=== PATIENT | female | born 1980 | race Caucasian/White ===

== ENCOUNTER 2017-11-22 20:20 | Emergency (ER) | payer OTHER, SELFPAY ==
[2017-11-22 20:25] VITALS: BP 133/73; PULSE 94; RESP 18; TEMP 36.3; O2SAT 100; BMI 66.7
[2017-11-22 23:15] VITALS: BP 124/83; PULSE 74; RESP 16; O2SAT 100
[2017-11-22] MEDS: KETOROLAC 60 MG/2 ML VIAL IM (23:26)
[2017-11-22] MEDS: diazePAM 5 MG TABLET PO (23:26)
[2017-11-22] MEDS: predniSONE 20 MG TABLET 40 MG PO (23:27)
--- NOTE | 2017-11-23 02:51 | ED_ITS ---
HPI - Neck Pain/Injury General Chief Complaint: Neck Pain/Injury Stated Complaint: PAIN NECK INJURY PAIN DOWN LEFT ARM Source: patient and family Mode of arrival: ambulatory Limitations: no limitations History of Present Illness HPI Narrative: Patient presents to the emergency department with a few days of slight worsening left-sided neck pain in the absence of any significant injury. She states she might have slept wrong or tweaked it while doing some work at her home a few days ago. The pain radiates into her left arm and she has some tingling but denies any weakness. She has seen her chiropractor and had an adjustment without much in the way of relief. She denies any specific injury and has no midline bony pain. She denies fever, chills nor headache. Related Data Previous Rx's Medication Instructions Recorded diazepam [Valium] 5 mg PO TID PRN #14 tab 11/22/17 ibuprofen 600 mg PO TID-QID PRN #20 tab 11/22/17 oxycodone 5 mg PO Q4-6H PRN #14 tab 11/22/17 prednisone 20 mg PO DAILY #5 tab 11/22/17 Allergies Allergy/AdvReac Type Severity Reaction Status Date / Time acetaminophen [From Vicodin] Allergy Intermediate Hives Verified 11/22/17 20:29 hydrocodone [From Vicodin] Allergy Intermediate Hives Verified 11/22/17 20:29 Review of Systems Review of Systems All systems reviewed & are unremarkable except as noted in HPI and below Constitutional Denies chills, Denies fever(s), Denies lethargy and Denies weakness Eyes Denies change in vision, Denies eye discharge, Denies irritation and Denies loss of vision ENT Ears, Nose, Mouth, and Throat: Denies change in voice, Reports neck pain and Denies sore throat Cardiovascular Denies chest pain, Denies irregular heart rhythm, Denies lightheadedness, Denies palpitations, Denies dyspnea, Denies dyspnea on exertion and Denies orthopnea Respiratory Denies cough, Denies dyspnea, Denies dyspnea on exertion and Denies wheezing Gastrointestinal Gastrointestinal: Denies abdominal pain, Denies change in bowel habits, Denies diarrhea, Denies nausea and Denies vomiting Genitourinary Denies hematuria, Denies flank pain, Denies urinary incontinence and Denies urinary urgency Musculoskeletal Reports limited range of motion, Reports neck pain, Reports radiating pain into limb and Reports tingling Integumentary/Breasts Denies pruritus, Denies erythema, Denies rash and Denies wounds Neurologic Denies confusion, Denies loss of vision, Reports tingling and Denies weakness Psychiatric Denies anxiety, Denies confusion, Denies depression, Denies homicidal ideation and Denies suicidal ideation Endocrine Denies palpitations Hematologic/Lymphatic Denies easy bruising Allergic/Immunologic Denies wheezing PFSH Social History Smoking Status: Never smoker Exam Initial Vital Signs Initial Vital Signs: Vital Signs Temperature 97.4 F L 11/22/17 20:25 Pulse Rate 94 H 11/22/17 20:25 Respiratory Rate 18 11/22/17 20:25 Blood Pressure 133/73 H 11/22/17 20:25 Pulse Oximetry 100 11/22/17 20:25 Const General: cooperative and well developed Nutritional Appearance: well nourished Orientation: alert, awake, oriented x3 and not confused HENMT Head: normocephalic and atraumatic Ears: external ears normal and TM's normal bilaterally Nose: external nose normal and No nasal discharge Face and sinus: sinuses nontender, face symmetric, no sinus tenderness and No dry mucous membranes Mouth: oral mucosae normal and moist mucous membranes Teeth and gingiva: dentition normal Throat: tonsils normal and uvula midline Eyes General: appearance normal, both eyes and all related structures Eyelids: eyelids normal Conjunctivae: conjunctivae normal Sclera: sclerae normal Pupils: PERRL EOM: EOM intact bilaterally Neck Neck: normal visual inspection, No full ROM, supple, No anterior neck swelling, No midline deformity, No positive Brudzinski's sign and No positive Kernig's sign Other: Paraspinal tenderness on left side musculature No change in symptoms with axial loading of cervical spine Chest Chest: normal inspection of the chest Resp Effort & Inspection: normal respiratory effort, able to speak in complete sentences, no respiratory distress and no use of accessory muscles Auscultation: clear to auscultation bilaterally, no rales, no rhonchi and no wheezes Cardio Rate: regular rate Rhythm: regular rhythm Heart Sounds: no click, no gallops, no murmurs and no rubs Pulses: normal peripheral pulses GI Inspection: non-distended Palpation: soft, no hepatosplenomegaly, No guarding, No pulsatile mass and No tender Auscultation: normal bowel sounds Back/Spine/Pelvis Back: No CVA tenderness Cervical Spine: cervical ROM normal and No pain with cervical ROM Thoracic/Lumbar Spine: thoracic and lumbar spine normal to inspection Skin General: no rashes or lesions noted, No jaundice and No petechiae Neuro General: alert, awake, oriented x3, no meningeal signs and no focal motor deficits Cranial Nerves: CN's II-XI intact bilaterally Cognition: normal cognition Speech: speech normal Gait: normal gait Motor: muscle tone normal throughout, strength 5/5 throughout and No fasciculations Sensory Exam: no sensory deficits noted Extrem General: full ROM, no clubbing, cyanosis or edema, no pedal edema and no calf tenderness Psych Appearance: well kempt Mental Status: mental status grossly normal Attitude: cooperative Thought Content: normal and suicidality Judgment: judgment good Procedures Orthopedic Splinting/Casting Injury #1: Additional Comments: Patient placed in a soft cervical collar Course Orders Ordered: Discontinued Medications Diazepam (Valium) 5 mg PO NOW ONE Stop: 11/22/17 23:13 Last Admin: 11/22/17 23:26 Dose: 5 mg Ketorolac Tromethamine (Toradol) 60 mg IM NOW ONE Stop: 11/22/17 23:13 Last Admin: 11/22/17 23:26 Dose: 60 mg Prednisone (Deltasone) 40 mg PO NOW ONE Stop: 11/22/17 23:13 Last Admin: 11/22/17 23:27 Dose: 40 mg Vital Signs - 8 hr 11/22/17 20:25 11/22/17 23:15 Temperature 97.4 F L Pulse Rate 94 H 74 Respiratory Rate 18 16 Blood Pressure 133/73 H Blood Pressure [Left Arm] 124/83 H Pulse Oximetry 100 100 Discharge Plan Departure Patient Disposition: Home, Self-Care Clinical Impression: Strain of neck muscle, Cervical radiculopathy Discharge Date/Time: 11/23/17 00:03 Interventions: ED Discharge Assessment Last Done: 11/23/17 00:01 Instructions: DI for Cervical Radiculopathy Activity Restrictions/Additional Instructions: You have been prescribed narcotic medications. While on these medications you cannot drive or operate heavy machinery. Additionally you cannot sign legal documents or perform any duties such as this. 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 Please understand that we cannot provide further refills of narcotics or controlled substances through the ED and your pain management will need to be through your Primary Care Provider Prescriptions: New prednisone 20 mg tablet 20 mg PO DAILY Qty: 5 RF: 0 ibuprofen 600 mg tablet 600 mg PO TID-QID PRN (Reason: pain) Qty: 20 RF: 0 diazepam [Valium] 5 mg tablet 5 mg PO TID PRN (Reason: muscle spasm) Qty: 14 RF: 0 oxycodone 5 mg tablet 5 mg PO Q4-6H PRN (Reason: pain) Qty: 14 RF: 0
== END 2017-11-23 00:03 | disposition home or self-care (01) ==
PROVIDERS: Emergency Provider Emergency Medicine
DX: S16.1XXA Strain of muscle, fascia and tendon at neck level, initial encounter (principal); M54.2 Cervicalgia
CPT/HCPCS: 96372; 99282; 99283; J1885

== ENCOUNTER 2018-02-25 19:51 | Emergency (ER) | payer OTHER, SELFPAY ==
[2018-02-25 20:02] VITALS: BP 124/74; PULSE 103; RESP 18; TEMP 37.1; O2SAT 99; BMI 31.4
--- NOTE | 2018-02-25 20:19 | ED_ITS ---
HPI - Abdominal Pain <Fernanda Parisi PA-C - Last Filed: 02/25/18 22:15> General Chief Complaint: Abdominal Pain Stated Complaint: VOMITING/DRY HEAVING/DIARRHEA/HEADACHE Time Seen by Provider: 02/25/18 20:18 Source: patient Mode of arrival: ambulatory Limitations: no limitations History of Present Illness HPI narrative: This 37-year-old female comes in due to feeling dehydrated. She states that she had onset of vomiting and diarrhea later last night, has probably had 6 episodes of vomiting and same amount of watery diarrhea in the last 24 hr. She had chills and sweats, temperature at home was 99.4. She states that she has not had any abdominal pain with this, now just a little bit sore from retching. She denies any blood in the stools. She denies any urinary symptoms at all. She denies any possibility of stating ?I am very thompson. She states that she has had a mild head cold for a few days with sinus congestion and some hoarseness, but no cough or wheeze, no chest pain or dyspnea. She denies any recent travel, known exposures or sick household contacts. She states that she did eat pizza last night but others ate it and did not get sick. She is on well water but no one else has been sick and she generally drinks bottled water. She states that she could have had recent Giardia exposure through her dogs at home but took precautions and again no one else ill. She denies any recent medication changes or antibiotics. Denies other new complaints on systems review Related Data Previous Rx's Medication Instructions Recorded diazepam [Valium] 5 mg PO TID PRN #14 tab 11/22/17 ibuprofen 600 mg PO TID-QID PRN #20 tab 11/22/17 oxycodone 5 mg PO Q4-6H PRN #14 tab 11/22/17 prednisone 20 mg PO DAILY #5 tab 11/22/17 Allergies Allergy/AdvReac Type Severity Reaction Status Date / Time acetaminophen [From Vicodin] Allergy Intermediate Hives Verified 11/22/17 20:29 hydrocodone [From Vicodin] Allergy Intermediate Hives Verified 11/22/17 20:29 Review of Systems <Fernanda Parisi PA-C - Last Filed: 02/25/18 22:15> Review of Systems All systems reviewed & are unremarkable except as noted in HPI and below Exam <Fernanda Parisi PA-C - Last Filed: 02/25/18 22:15> Narrative Exam Narrative: GENERAL APPEARANCE: Patient sitting comfortably, in no distress. HEENT: PERRL, EOMI, no scleral icterus, normal oropharynx aside from a little PND NECK: Supple, no masses LUNGS: Clear to auscultation bilaterally. HEART: Rate and rhythm regular, normal S1 and S2, no S3 or S4. ABDOMEN: Soft, nontender, nondistended, bowel sounds present x 4 quadrants, no masses palpable, no hepatosplenomegaly. no CVAT EXTREMITIES: No edema, no cyanosis DERMATOLOGIC: No jaundice or exanthem NEUROLOGIC: Alert and oriented with normal speech and coordination Initial Vital Signs Initial Vital Signs: Vital Signs Temperature 98.8 F 02/25/18 20:02 Pulse Rate 103 H 02/25/18 20:02 Respiratory Rate 18 02/25/18 20:02 Blood Pressure 124/74 02/25/18 20:02 Pulse Oximetry 99 02/25/18 20:02 <Maury Briceno MD - Last Filed: 02/25/18 23:25> Initial Vital Signs Initial Vital Signs: Vital Signs Temperature 98.8 F 02/25/18 20:02 Pulse Rate 103 H 02/25/18 20:02 Respiratory Rate 18 02/25/18 20:02 Blood Pressure 124/74 02/25/18 20:02 Pulse Oximetry 99 02/25/18 20:02 Course <Fernanda Parisi PA-C - Last Filed: 02/25/18 22:15> Additional Information: Patient reported feeling much improved during her stay. She did not have recurrent vomiting or diarrhea and was tolerating oral fluids. She agreed to return if any acutely worsening symptoms again over the weekend Orders Ordered: ED Orders 02/25/18 20:40 Complete Blood Count AUTO DIFF Stat Comprehensive Metabolic Panel Stat Lipase Stat Discontinued Medications Sodium Chloride (Normal Saline 0.9%) 1,000 mls @ 1,000 mls/hr IV BOLUS ONE Stop: 02/25/18 21:27 Last Infusion: 02/25/18 21:36 Dose: 0 mls/hr Admin: 02/25/18 20:40 Dose: 1,000 mls/hr Loperamide HCl (Imodium) 4 mg PO NOW ONE Stop: 02/25/18 20:29 Last Admin: 02/25/18 20:46 Dose: 4 mg Ondansetron HCl (Zofran) 4 mg IV NOW ONE Stop: 02/25/18 20:29 Last Admin: 02/25/18 20:47 Dose: 4 mg Ondansetron HCl (Zofran Odt Prepack) 1 bottle MISC SEEINSTR ONE Stop: 02/25/18 21:40 Last Admin: 02/25/18 21:47 Dose: 1 bottle Vital Signs - 8 hr 02/25/18 20:02 02/25/18 22:01 Temperature 98.8 F 98.8 F Pulse Rate 103 H 95 H Respiratory Rate 18 16 Blood Pressure 124/74 130/63 Pulse Oximetry 99 99 <Maury Briceno MD - Last Filed: 02/25/18 23:25> Orders Ordered: ED Orders 02/25/18 20:40 Complete Blood Count AUTO DIFF Stat Comprehensive Metabolic Panel Stat Lipase Stat Discontinued Medications Sodium Chloride (Normal Saline 0.9%) 1,000 mls @ 1,000 mls/hr IV BOLUS ONE Stop: 02/25/18 21:27 Last Infusion: 02/25/18 21:36 Dose: 0 mls/hr Admin: 02/25/18 20:40 Dose: 1,000 mls/hr Loperamide HCl (Imodium) 4 mg PO NOW ONE Stop: 02/25/18 20:29 Last Admin: 02/25/18 20:46 Dose: 4 mg Ondansetron HCl (Zofran) 4 mg IV NOW ONE Stop: 02/25/18 20:29 Last Admin: 02/25/18 20:47 Dose: 4 mg Ondansetron HCl (Zofran Odt Prepack) 1 bottle MISC SEEINSTR ONE Stop: 02/25/18 21:40 Last Admin: 02/25/18 21:47 Dose: 1 bottle Vital Signs - 8 hr 02/25/18 20:02 02/25/18 22:01 Temperature 98.8 F 98.8 F Pulse Rate 103 H 95 H Respiratory Rate 18 16 Blood Pressure 124/74 130/63 Pulse Oximetry 99 99 MDM - Abdominal Pain <Fernanda Parisi PA-C - Last Filed: 02/25/18 22:15> Lab Data Result diagrams: 02/25/18 20:40 02/25/18 20:40 Lab Results 02/25/18 02/25/18 Range/Units 20:40 20:40 WBC 5.7 (4.5-11.0) X10^3/uL RBC 4.59 (4.0-5.2) X10^6/uL Hgb 10.8 L (12.0-16.0) g/dL Hct 33.4 L (36-46) % MCV 72.8 L (80-100) fL MCH 23.5 L (26-34) PG MCHC 32.2 (30-36) % RDW 13.6 (11.6-14.8) % Plt Count 233 (150-400) X10^3/uL Neut % (Auto) 85.7 H (50-75) % Lymph % (Auto) 8.8 L (25-40) % Whitley % (Auto) 5.1 (3-14) % Eos % (Auto) 0.1 L (2-4) % Baso % (Auto) 0.3 (0-2) % Neut # (Auto) 4900 (8268-1278) /uL Sodium 141 (137-145) mmol/L Potassium 3.8 (3.4-5.1) mmol/L Chloride 104 (98-107) mmol/L Carbon Dioxide 24 (22-32) mmol/L BUN 8 (7-17) mg/dL Creatinine 0.50 L (0.52-1.04) mg/dL Estimated GFR > 60.0 (>60) mL/min BUN/Creatinine Ratio 16.0 (6-22) Glucose 105 H (70-100) mg/dL Calcium 9.3 (8.4-10.2) mg/dL Total Bilirubin 0.6 (0.2-1.3) mg/dL AST 23 (14-36) IU/L ALT 26 (9-52) IU/L Alkaline Phosphatase 53 (38-126) U/L Total Protein 7.3 (6.3-8.2) g/dL Albumin 4.2 (3.5-5.0) g/dL Globulin 3.1 (1.7-4.1) g/dL Albumin/Globulin Ratio 1.4 (1.0-2.8) Lipase 30 (23-300) U/L <Maury rBiceno MD - Last Filed: 02/25/18 23:25> Lab Data Lab Results 02/25/18 02/25/18 Range/Units 20:40 20:40 WBC 5.7 (4.5-11.0) X10^3/uL RBC 4.59 (4.0-5.2) X10^6/uL Hgb 10.8 L (12.0-16.0) g/dL Hct 33.4 L (36-46) % MCV 72.8 L (80-100) fL MCH 23.5 L (26-34) PG MCHC 32.2 (30-36) % RDW 13.6 (11.6-14.8) % Plt Count 233 (150-400) X10^3/uL Neut % (Auto) 85.7 H (50-75) % Lymph % (Auto) 8.8 L (25-40) % Whitley % (Auto) 5.1 (3-14) % Eos % (Auto) 0.1 L (2-4) % Baso % (Auto) 0.3 (0-2) % Neut # (Auto) 4900 (7177-0860) /uL Sodium 141 (137-145) mmol/L Potassium 3.8 (3.4-5.1) mmol/L Chloride 104 (98-107) mmol/L Carbon Dioxide 24 (22-32) mmol/L BUN 8 (7-17) mg/dL Creatinine 0.50 L (0.52-1.04) mg/dL Estimated GFR > 60.0 (>60) mL/min BUN/Creatinine Ratio 16.0 (6-22) Glucose 105 H (70-100) mg/dL Calcium 9.3 (8.4-10.2) mg/dL Total Bilirubin 0.6 (0.2-1.3) mg/dL AST 23 (14-36) IU/L ALT 26 (9-52) IU/L Alkaline Phosphatase 53 (38-126) U/L Total Protein 7.3 (6.3-8.2) g/dL Albumin 4.2 (3.5-5.0) g/dL Globulin 3.1 (1.7-4.1) g/dL Albumin/Globulin Ratio 1.4 (1.0-2.8) Lipase 30 (23-300) U/L Discharge Plan Departure Patient Disposition: Home Clinical Impression: Gastroenteritis Discharge Date/Time: 02/25/18 22:03 Interventions: ED Discharge Assessment Last Done: 02/25/18 22:01 Instructions: DI for Viral Gastroenteritis -- Adult Activity Restrictions/Additional Instructions: Return as we talked about if you have acutely worsening symptoms again, or new symptoms such as abdominal pain. Take the antinausea medicine we gave you later tonight or in the morning if needed. You can also take Imodium over-the- counter if needed. Please drink clear fluids tonight, and start with bland foods such as broth, bananas, white rice or white bread, applesauce tomorrow, then you can slowly advance your diet back as you tolerate. Please see your PCP if you are still having symptoms next week Prescriptions: No Action prednisone 20 mg tablet 20 mg PO DAILY Qty: 5 RF: 0 ibuprofen 600 mg tablet 600 mg PO TID-QID PRN (Reason: pain) Qty: 20 RF: 0 diazepam [Valium] 5 mg tablet 5 mg PO TID PRN (Reason: muscle spasm) Qty: 14 RF: 0 oxycodone 5 mg tablet 5 mg PO Q4-6H PRN (Reason: pain) Qty: 14 RF: 0 Referrals: [facility], [Other] <Maury Briceno MD - Last Filed: 02/25/18 23:25> Cosign ED Attending Camilo Attestation: I was present in the ER at the time of this patient's evaluation. I was available for verbal consultation or to see the patient directly if need be. I agree with the assessment and treatment plan.
[2018-02-25] MEDS: SODIUM CHLORIDE 0.9% 1,000 ML 1000 ML IV (20:40)
[2018-02-25] MEDS: LOPERAMIDE 2 MG CAPSULE 4 MG PO (20:46)
[2018-02-25] MEDS: ONDANSETRON 4 MG/2 ML INJ IV (20:47)
[2018-02-25 21:21] LABS: Add Manual Diff / Slide Review NO; Basophils Percent Auto 0.3 % (0-2); Eosinophils Percent Auto 0.1 % (2-4); Hematocrit 33.4 % (36-46); Hemoglobin 10.8 g/dL (12.0-16.0); Lymphocytes Percent Auto 8.8 % (25-40); Mean Corpuscular HGB Conc 32.2 % (30-36); Mean Corpuscular Hemoglobin 23.5 PG (26-34); Mean Corpuscular Volume 72.8 fL (80-100); Monocytes Percent Auto 5.1 % (3-14); Neutrophils Absolute Auto 4900 /uL (3000-5900); Neutrophils Percent Auto 85.7 % (50-75); Platelet Count 233 X10^3/uL (150-400); Red Blood Cell Count 4.59 X10^6/uL (4.0-5.2); Red Cell Distribution Width 13.6 % (11.6-14.8); White Blood Cell Count 5.7 X10^3/uL (4.5-11.0)
[2018-02-25 21:27] LABS: Alanine Aminotransferase 26 IU/L (9-52); Albumin 4.2 g/dL (3.5-5.0); Albumin Globulin Ratio 1.4 (1.0-2.8); Alkaline Phosphatase 53 U/L (38-126); Aspartate Aminotransferase 23 IU/L (14-36); Bilirubin Total 0.6 mg/dL (0.2-1.3); Blood Urea Nitrogen 8 mg/dL (7-17); Calcium 9.3 mg/dL (8.4-10.2); Carbon Dioxide 24 mmol/L (22-32); Chloride 104 mmol/L (98-107); Estimated Glomerular Filt Rate > 60.0 mL/min (>60); Globulin 3.1 g/dL (1.7-4.1); Glucose 105 mg/dL (70-100); HEMOLYSIS < 15 (0-50); Lipase 30 U/L (23-300); Potassium 3.8 mmol/L (3.4-5.1); Sodium 141 mmol/L (137-145); Total Protein 7.3 g/dL (6.3-8.2)
[2018-02-25] MEDS: ONDANSETRON 4 MG ODT PREPACK 1 BOTTLE MISC (21:47)
[2018-02-25 22:01] VITALS: BP 130/63; PULSE 95; RESP 16; TEMP 37.1; O2SAT 99
== END 2018-02-25 22:03 | disposition home or self-care (01) ==
PROVIDERS: Emergency Provider Internal Medicine
DX: K52.9 Noninfective gastroenteritis and colitis, unspecified (principal)
CPT/HCPCS: 36591; 80053; 83690; 85025; 96361; 96374; 99283; 99284; J2405

== ENCOUNTER 2020-02-29 07:52 | Emergency (ER) | payer OTHER, SELFPAY ==
[2020-02-29 07:59] VITALS: BP 119/83; PULSE 92; RESP 16; TEMP 36.4; O2SAT 100; BMI 34.9
--- NOTE | 2020-02-29 08:06 | DI.RAD.S_ITS ---
PROCEDURE: XR HAND RT MIN 3V INDICATIONS: cat bite 1st finger TECHNIQUE: 3 views of the hand(s) acquired. COMPARISON: None. FINDINGS: Bones: No fractures or dislocations. Carpal bones are normally aligned. No suspicious bony lesions. Soft tissues: No suspicious soft tissue calcifications. IMPRESSION: No fracture or foreign body seen. Dictated by: Kal Bolden M.D. on 02/29/2020 at 8:25 Approved by: Kal Bolden M.D. on 02/29/2020 at 8:26
--- NOTE | 2020-02-29 08:19 | ED_ITS ---
HPI - Animal Bite General Chief Complaint: Animal Bite Stated Complaint: animal bite Time Seen by Provider: 02/29/20 08:03 Source: patient Mode of arrival: Ambulatory Limitations: no limitations History of Present Illness HPI narrative: Patient is a 39-year-old female who presents with a right hand cat bite. She works in [employer] office. Yesterday he was seeing a CaT when the cat bit her in the right thenar eminence there are multiple puncture wounds. It is erythematous and hurt to move. She has no fever or streaking. No numbness or tingling. CaT is a 1-year-old CaT who got its 1st shots yesterday. Patient has all of her vaccinations. The patient has been treated for these in the past MD complaint: animal bite Onset (ago): day(s) Animal: cat Related Data Previous Rx's Medication Instructions Recorded diazepam [Valium] 5 mg PO TID PRN #14 tab 11/22/17 ibuprofen 600 mg PO TID-QID PRN #20 tab 11/22/17 oxycodone 5 mg PO Q4-6H PRN #14 tab 11/22/17 prednisone 20 mg PO DAILY #5 tab 11/22/17 amoxicillin-pot clavulanate 1 tab PO Q12H #14 tab 02/29/20 [Augmentin] Allergies Allergy/AdvReac Type Severity Reaction Status Date / Time acetaminophen [From Vicodin] Allergy Intermediate Hives Verified 11/22/17 20:29 hydrocodone [From Vicodin] Allergy Intermediate Hives Verified 11/22/17 20:29 Review of Systems Review of Systems Narrative: GENERAL: Denies chills,fever HEENT: Denies throat pain RESPIRATORY: Denies dyspnea, cough, wheezing CARDIOVASCULAR: Denies chest pain, palpitations GASTROINTESTINAL: Denies nausea, vomiting MUSCULOSKELETAL: Denies extremity pain, injury SKIN: See HPI NEUROLOGIC: Denies weakness, dizziness, headache, numbness 8 point review of systems is negative except for those stated above and HPI Patient History Medical History Iron deficiency anemia (Chronic) Surgical History History of sleeve gastrectomy (Resolved) Social History Smoking Status: Never smoker substance use type: does not use Smoking Status: Never smoker alcohol intake frequency: 0-2 drinks per day Substance Use Type: does not use Exam Initial Vital Signs Initial Vital Signs: Vital Signs Temperature 97.5 F L 02/29/20 07:59 Pulse Rate 92 H 02/29/20 07:59 Respiratory Rate 16 02/29/20 07:59 Blood Pressure 119/83 02/29/20 07:59 Pulse Oximetry 100 02/29/20 07:59 GENERAL: Well-appearing, well-nourished and in no acute distress. CARDIOVASCULAR: peripheral pulses in tact, cap refill <2 sec RESPIRATORY: No respiratory distress, speaks in full sentences without difficulty EXTREMITIES: Normal range of motion, no clubbing or edema. Neurovascularly intact. Right hand good opposition able to make fist slightly tender in thenar eminence NEUROLOGICAL: Cranial nerves II through XII grossly intact. Normal gait and speech. SKIN: Right hand multiple puncture wounds in the right thenar eminence and base of right thumb. Mildly erythematous without streaking Scores ABCD2 Citation: Lancet. 2006Jul 17;369(1026):283-92. Validation and refinement of scores to predict very early stroke risk after transient ischaemic attack. Dev SC1, Jodee PM, Azul MN, Fadi MF, Leighann JS, Dafne AL, Bernardo S. Course Orders Ordered: ED Orders 02/29/20 08:06 XR hand RT min 3V Stat Vital Signs Vital signs: Vital Signs - 8 hr 02/29/20 07:59 Temperature 97.5 F L Pulse Rate 92 H Respiratory Rate 16 Blood Pressure 119/83 Pulse Oximetry 100 [facility] - Animal Bite Imaging Data Extremity x-ray #1: Radiologist's Impression: PROCEDURE: XR HAND RT MIN 3V INDICATIONS: cat bite 1st finger TECHNIQUE: 3 views of the hand(s) acquired. COMPARISON: None. FINDINGS: Bones: No fractures or dislocations. Carpal bones are normally aligned. No suspicious bony lesions. Soft tissues: No suspicious soft tissue calcifications. IMPRESSION: No fracture or foreign body seen. Dictated by: Kal Bolden M.D. on 02/29/2020 at 8:25 Approved by: Kal Bolden M.D. on 02/29/2020 at 8:26 [facility] Narrative Medical decision making narrative: Patient states she has had allergic reaction to an antibiotic before but she said does long time ago when she was little girl in does not remember what the antibiotic was. She states that she thinks she got a rash she denies any anaphylactic reactions. At this time she is willing to try Augmentin and see if she has a reaction Discharge Plan Departure Patient Disposition: Home Clinical Impression: Cat bite Qualifiers: Encounter type: initial encounter Qualified Code(s): W55.01XA - Bitten by cat, initial encounter Discharge Date/Time: 02/29/20 08:40 Instructions: DI for Cat Bite Activity Restrictions/Additional Instructions: *You have been diagnosed with cat bite to right hand *What to do: Monitor for worsening infection. Try this antibiotic you may experience rash at which point your antibiotic may need to be switched *Continue to take medications as directed Augmentin 875 mg twice a day for 7 days *Follow up with your primary care provider in 2-3 days *Return to ER if you should have increased redness, increased pain inability to move finger or any new, worsening or concerning symptoms Prescriptions: New amoxicillin-pot clavulanate [Augmentin] 875-125 mg tablet 1 tab PO Q12H Qty: 14 RF: 0 No Action prednisone 20 mg tablet 20 mg PO DAILY Qty: 5 RF: 0 ibuprofen 600 mg tablet 600 mg PO TID-QID PRN (Reason: pain) Qty: 20 RF: 0 diazepam [Valium] 5 mg tablet 5 mg PO TID PRN (Reason: muscle spasm) Qty: 14 RF: 0 oxycodone 5 mg tablet 5 mg PO Q4-6H PRN (Reason: pain) Qty: 14 RF: 0 Referrals: [facility] [Outside] Stand Alone Forms: Work Release Note
== END 2020-02-29 08:40 | disposition home or self-care (01) ==
PROVIDERS: Emergency Provider Emergency Medicine
DX: S61.451A Open bite of right hand, initial encounter (principal); W55.01XA Bitten by cat, initial encounter; Y99.0 Civilian activity done for income or pay
CPT/HCPCS: 73130; 99283

== ENCOUNTER → 2021-01-03 13:45 | Outpatient (CLI) | payer BC, SELFPAY ==
--- NOTE | 2021-01-03 | DI.RAD.S_ITS ---
PROCEDURE: XR FOOT LT MIN 3V INDICATIONS: lt foot pain TECHNIQUE: 3 views of the foot were acquired. COMPARISON: None. FINDINGS: Bones: No fractures or dislocations. No suspicious bony lesions. Well-defined plantar and dorsal calcaneal enthesophytes are seen. Soft tissues: No tibiotalar joint effusion. Achilles tendon appears normal. IMPRESSION: No left foot fracture or dislocation. Well-defined plantar and dorsal calcaneal enthesophytes. Dictated by: Alessio Wilkinson M.D. on 01/03/2021 at 14:18 Approved by: Alessio Wilkinson M.D. on 01/03/2021 at 14:19
== END ==
PROVIDERS: PCP Registered Nurse; Referring Provider Physician Assistant Medical; Visit Provider Physician Assistant Medical
DX: S99.922A Unspecified injury of left foot, initial encounter (principal); M79.672 Pain in left foot
CPT/HCPCS: 73630

== ENCOUNTER 2021-05-05 22:22 | Emergency (ER) | payer OTHER, MEDICAID, SELFPAY ==
[2021-05-05 22:30] VITALS: BP 153/74; PULSE 91; RESP 16; TEMP 36.8; O2SAT 100; BMI 37.7
--- NOTE | 2021-05-05 22:31 | ED.WEAKNESS ---
HPI - Weakness General Chief complaint: Dizziness Stated complaint: DIZZY LEFT LEG PAIN Time Seen by Provider: 05/05/21 22:24 History of Present Illness HPI Narrative: 41-year-old female nonsmoker presents with ongoing complaints dizziness, lightheadedness and fatigue with minimal exertion over at least the past few weeks. She has been followed by her primary care provider has been found to be increasingly anemic. She had recently started iron supplements but continues to drop. She denies any vomiting blood, blood in her urine or dark and tarry stools. She currently is on her menses and denies that it is any heavy or, if anything it is licensing representative than normal bow lasting a bit longer. She has had no fever or chills. She denies any chest pain. Additionally, she complains of pain, swelling and redness in her left posterior calf. She denies any recent travel, injury or history of clot. Related Data Previous Rx's Medication Instructions Recorded ibuprofen 600 mg tablet 600 mg PO TID-QID PRN #20 tab 11/22/17 citalopram 20 mg tablet 20 mg PO DAILY #30 tab 07/30/20 Allergies Allergy/AdvReac Type Severity Reaction Status Date / Time acetaminophen [From Vicodin] Allergy Intermediate Hives Verified 05/05/21 22:33 hydrocodone [From Vicodin] Allergy Intermediate Hives Verified 05/05/21 22:33 shellfish derived Allergy ITCHING, Verified 05/05/21 22:33 vomiting Review of Systems Review of Systems Narrative: GENERAL: See HPI HEENT: Denies sinus pain, ear pain, sore throat, difficulty swallowing, dizziness. RESPIRATORY: See HPI CARDIOVASCULAR: Denies chest pain, palpitations, orthopnea, edema, GASTROINTESTINAL: Denies nausea, vomiting, abdominal pain, diarrhea, constipation, melena. : Denies dysuria, frequency, incontinence, hematuria, urinary retention. MUSCULOSKELETAL: denies weakness, joint pain, or bony pain SKIN: See HPI NEUROLOGIC: Denies weakness, headache, numbness, change in speech, confusion, seizures, incoordination. PSYCHIATRIC: No concerning psychosocial issues. 12 point review of systems is negative except for those stated above Patient History Medical History (Updated 05/06/21 @ 00:01 by Davian Quintana DO) Iron deficiency anemia Surgical History History of sleeve gastrectomy Social History Smoking Status: Never smoker substance use type: does not use Smoking Status: Never smoker alcohol intake frequency: 0-2 drinks per day Substance Use Type: does not use Exam Narrative Exam Narrative: GENERAL: [41] year old patient appears stated age. Well-developed patient, in mild distress. HEAD: Atraumatic. Normocephalic. EYES: Pale conjunctiva Pupils equal round and reactive. Extraocular motions intact. No scleral icterus. No injection or drainage. ENT: Nose without bleeding, purulent drainage. Throat without erythema, tonsillar hypertrophy or exudate. Airway patent. NECK: Trachea midline. Non tender CARDIOVASCULAR: Regular rate and rhythm without murmurs, gallops, or rubs. RESPIRATORY: Clear to auscultation. Breath sounds equal bilaterally. No wheezes, rales, or rhonchi. GASTROINTESTINAL: Abdomen soft, non-tender, nondistended. EXTREMITIES: No edema or joint tenderness. BACK: Nontender without deformity or crepitance. No flank tenderness. NEURO: AOx3. SKIN: Palpable ?lumps? with warmth, minimal tenderness and erythema in posterior calf No rash or erythema of visible areas Initial Vital Signs Initial Vital Signs: Vital Signs Temperature 98.3 F 05/05/21 22:30 Pulse Rate 91 H 05/05/21 22:30 Respiratory Rate 16 05/05/21 22:30 Blood Pressure 153/74 H 05/05/21 22:30 Pulse Oximetry 100 05/05/21 22:30 Course Orders Ordered: ED Orders 05/05/21 22:44 Complete Blood Count AUTO DIFF Stat Comprehensive Metabolic Panel Stat Type and Screen Stat 05/05/21 22:53 US perip venous low extrem lt Stat Vital Signs Vital signs: Vital Signs - 8 hr 05/05/21 22:30 05/06/21 00:19 Temperature 98.3 F Pulse Rate 91 H 86 Respiratory Rate 16 16 Blood Pressure 153/74 H 142/66 H Pulse Oximetry 100 99 MDM - Weakness Lab Data Result diagrams: 05/05/21 22:44 05/05/21 22:44 Labs: Lab Results 05/05/21 05/05/21 05/05/21 Range/Units 22:44 22:44 22:44 WBC 8.4 (4.5-11.0) X10^3/uL RBC 4.48 (4.0-5.2) X10^6/uL Hgb 7.9 L (12.0-16.0) g/dL Hct 26.2 L (36-46) % MCV 58.6 L (80-100) fL MCH 17.5 L (26-34) PG MCHC 30.0 (30-36) % RDW 17.7 H (11.6-14.8) % Plt Count 325 (150-400) X10^3/uL Neut % (Auto) 62.6 (50-75) % Lymph % (Auto) 28.7 (25-40) % Hubbard % (Auto) 5.8 (3-14) % Eos % (Auto) 2.1 (2-4) % Baso % (Auto) 0.8 (0-2) % Neut # (Auto) 5300 (0523-7470) /uL Lymph # (Auto) 2400 (7207-2831) /uL Hubbard # (Auto) 500 (0-900) /uL Eos # (Auto) 200 (0-450) /uL Baso # (Auto) 100 (0-100) /uL RBC Morphology See below Hypochromasia 1+ H Anisocytosis 2+ H Microcytosis 2+ H Sodium 137 (137-145) mmol/L Potassium 3.7 (3.4-5.1) mmol/L Chloride 105 (98-107) mmol/L Carbon Dioxide 27 (22-32) mmol/L BUN 11 (7-17) mg/dL Creatinine 0.78 (0.52-1.04) mg/dL Estimated GFR > 60.0 (>60) mL/min BUN/Creatinine Ratio 14.1 (6-22) Glucose 90 (70-100) mg/dL Calcium 8.9 (8.4-10.2) mg/dL Total Bilirubin 0.2 (0.2-1.3) mg/dL AST 24 (14-36) IU/L ALT 15 (<35) IU/L Alkaline Phosphatase 50 (38-126) U/L Total Protein 7.8 (6.3-8.2) g/dL Albumin 4.2 (3.5-5.0) g/dL Globulin 3.6 (1.7-4.1) g/dL Albumin/Globulin Ratio 1.2 (1.0-2.8) Blood Type A Positive Antibody Screen Negative Imaging Data US - DVT: Radiologist Impression: [address] [id number] ReportSigned Patient: Leonie Kraus EMR#: [id number]: 1980Acct:[id number]/Sex: 41 / FDate of Service: 05/05/21Loc: EDAccession Number: [id number] Procedure: US periph venous low extrem lt Ordering Provider: Davian Quintana D.O. PROCEDURE: US PERIPH VENOUS LOW EXTREM LT INDICATIONS: PAIN, REDNESS TECHNIQUE: Real-time imaging, as well as color and pulse Doppler interrogation, were performed of the lower extremity deep veins from the inguinal ligament to the popliteal fossa. COMPARISON: None. FINDINGS: The common femoral, femoral and popliteal veins are normally compressible, and free of intraluminal thrombus. Color and pulse Doppler demonstrate normal phasic intraluminal flow. There is normal augmentation response to distal compression maneuver. Thrombosed superficial veins within the mid/posterior calf. IMPRESSION: 1. No evidence of left lower extremity DVT. 2. Superficial thrombophlebitis within the calf. Dictated by: Saurabh Bunch M.D. on 05/06/2021 at 0:02 Approved by: Saurabh Bunch M.D. on 05/06/2021 at 0:03 MDM Narrative Medical decision making narrative: Patient continues to be anemic though is above threshold for transfusion. Her H&H is relatively stable as are vital signs. We discussed at length what return precautions would include and I encouraged her to follow closely with her PCP and to discuss whether not iron infusions might be appropriate for her. Additionally, given the presence of superficial thrombophlebitis in her left lower extremity I told her we could either initiate aspirin today or hold off until she sees her PCP in the next day or 2. She states that she would prefer to hold off at this point time because her primary care provider had encouraged her not to take any anticoagulant, aspirin or Motrin. We did discuss that she is at increased risk of clot formation given the use of control and her relative sedentary lifestyle due to her anemia. Additionally, we discussed that the use of aspirin would put her at increased risk of bleeding and though this is not been the source of her anemia she would prefer to hold off for now. Return precautions have been discussed and questions answered to her apparent satisfaction. Discharge Plan Departure Patient Disposition: Home Clinical Impression: Anemia Qualifiers: Anemia type: iron deficiency Iron deficiency anemia type: unspecified iron deficiency Qualified Code(s): D50.9 - Iron deficiency anemia, unspecified Superficial thrombophlebitis Qualifiers: Superficial thrombophlebitis-Involved body area: lower extremity Laterality: left Qualified Code(s): I80.02 - Phlebitis and thrombophlebitis of superficial vessels of left lower extremity Instructions: DI for Iron Deficiency Anemia-Adult Activity Restrictions/Additional Instructions: *You have been diagnosed with [iron deficiency anemia and superficial thrombophlebitis of left calf. As we discussed your numbers are not sufficiently low to require transfusion] *What to do: *Please continue to take your regular medications as directed. [ ] New medication prescriptions sent to your pharmacy: [ ] [ ] New medication written as a paper prescription [x ] No new medications given *Please follow up with your primary care provider in 2-3 days, call for an appointment. Let them know you were seen in the Emergency Department and that we ask that you be seen in follow up. We will electronically transmit a record of today's note if your PCP is in our system. Please discuss with them whether not they feel he would be a good candidate for iron infusions. *Return to Emergency Department if you should have any new, worsening or concerning symptoms, such as [fever greater than 101 F, shaking chills, worsening pain, persistent vomiting or other bothersome symptoms] Prescriptions: No Action citalopram 20 mg tablet 20 mg PO DAILY Qty: 30 RF: 2 ibuprofen 600 mg tablet 600 mg PO TID-QID PRN (Reason: pain) Qty: 20 RF: 0 Referrals: Dorys Nunez ARNP [Primary Care Provider] -
--- NOTE | 2021-05-05 22:53 | DI.US.S_ITS ---
PROCEDURE: US PERIPH VENOUS LOW EXTREM LT INDICATIONS: PAIN, REDNESS TECHNIQUE: Real-time imaging, as well as color and pulse Doppler interrogation, were performed of the lower extremity deep veins from the inguinal ligament to the popliteal fossa. COMPARISON: None. FINDINGS: The common femoral, femoral and popliteal veins are normally compressible, and free of intraluminal thrombus. Color and pulse Doppler demonstrate normal phasic intraluminal flow. There is normal augmentation response to distal compression maneuver. Thrombosed superficial veins within the mid/posterior calf. IMPRESSION: 1. No evidence of left lower extremity DVT. 2. Superficial thrombophlebitis within the calf. Dictated by: Saurabh Bunch M.D. on 05/06/2021 at 0:02 Approved by: Saurabh Bunch M.D. on 05/06/2021 at 0:03
[2021-05-05 23:15] LABS: Add Manual Diff / Slide Review NO; Basophils Absolute Auto 100 /uL (0-100); Basophils Percent Auto 0.8 % (0-2); Eosinophils Absolute Auto 200 /uL (0-450); Eosinophils Percent Auto 2.1 % (2-4); Hematocrit 26.2 % (36-46); Hemoglobin 7.9 g/dL (12.0-16.0); Lymphocytes Absolute Auto 2400 /uL (1100-4500); Lymphocytes Percent Auto 28.7 % (25-40); Mean Corpuscular Hemoglobin 17.5 PG (26-34); Mean Corpuscular Volume 58.6 fL (80-100); Monocytes Absolute Auto 500 /uL (0-900); Monocytes Percent Auto 5.8 % (3-14); Neutrophils Absolute Auto 5300 /uL (1500-7000); Neutrophils Percent Auto 62.6 % (50-75); Platelet Count 325 X10^3/uL (150-400); Red Blood Cell Count 4.48 X10^6/uL (4.0-5.2); Red Cell Distribution Width 17.7 % (11.6-14.8); White Blood Cell Count 8.4 X10^3/uL (4.5-11.0)
[2021-05-05 23:26] LABS: Alanine Aminotransferase 15 IU/L (<35); Albumin 4.2 g/dL (3.5-5.0); Albumin Globulin Ratio 1.2 (1.0-2.8); Alkaline Phosphatase 50 U/L (38-126); Aspartate Aminotransferase 24 IU/L (14-36); BUN Creatinine Ratio 14.1 (6-22); Bilirubin Total 0.2 mg/dL (0.2-1.3); Blood Urea Nitrogen 11 mg/dL (7-17); Calcium 8.9 mg/dL (8.4-10.2); Carbon Dioxide 27 mmol/L (22-32); Chloride 105 mmol/L (98-107); Estimated Glomerular Filt Rate > 60.0 mL/min (>60); Globulin 3.6 g/dL (1.7-4.1); Glucose 90 mg/dL (70-100); HEMOLYSIS < 15 (0-50); Potassium 3.7 mmol/L (3.4-5.1); Sodium 137 mmol/L (137-145); Total Protein 7.8 g/dL (6.3-8.2)
[2021-05-05 23:28] LABS: Anisocytosis 2+; Hypochromasia 1+; Microcytosis 2+
[2021-05-06 00:19] VITALS: BP 142/66; PULSE 86; RESP 16; O2SAT 99
== END 2021-05-06 00:20 | disposition home or self-care (01) ==
PROVIDERS: Emergency Provider Emergency Medicine; PCP Registered Nurse
DX: D50.9 Iron deficiency anemia, unspecified (principal); I80.02 Phlebitis and thrombophlebitis of superficial vessels of left lower extremity
CPT/HCPCS: 36415; 80053; 85025; 86850; 86900; 86901; 93971; 99283; 99284

== ENCOUNTER → 2021-05-06 12:12 | Outpatient (CLI) | payer OTHER, MEDICAID, SELFPAY ==
[2021-05-06 12:52] LABS: Hematocrit 26.5 % (36-46)
== END ==
PROVIDERS: PCP Registered Nurse; Referring Provider Physician Assistant; Visit Provider Physician Assistant
DX: D64.9 Anemia, unspecified (principal)
CPT/HCPCS: 36415; 85014; 85018

== ENCOUNTER → 2021-07-08 12:32 | Outpatient (CLI) | payer OTHER, MEDICAID, SELFPAY ==
[2021-07-08 12:54] LABS: Add Manual Diff / Slide Review NO; Basophils Absolute Auto 0 /uL (0-100); Basophils Percent Auto 0.8 % (0-2); Eosinophils Absolute Auto 100 /uL (0-450); Hematocrit 35.6 % (36-46); Hemoglobin 11.7 g/dL (12.0-16.0); Lymphocytes Absolute Auto 1900 /uL (1100-4500); Lymphocytes Percent Auto 32.2 % (25-40); Mean Corpuscular HGB Conc 32.8 % (30-36); Mean Corpuscular Hemoglobin 23.8 PG (26-34); Mean Corpuscular Volume 72.5 fL (80-100); Monocytes Absolute Auto 300 /uL (0-900); Monocytes Percent Auto 5.8 % (3-14); Neutrophils Absolute Auto 3400 /uL (1500-7000); Neutrophils Percent Auto 59.2 % (50-75); Platelet Count 289 X10^3/uL (150-400); Red Blood Cell Count 4.91 X10^6/uL (4.0-5.2); Red Cell Distribution Width 24.6 % (11.6-14.8); White Blood Cell Count 5.8 X10^3/uL (4.5-11.0)
[2021-07-08 13:12] LABS: Poikilocytosis 1+
[2021-07-08 13:13] LABS: Iron 55 ug/dL (37-170)
[2021-07-08 13:23] LABS: Percent Iron Saturation 18 % (15-50); Total Iron Binding Capacity 301 ug/dL (265-497)
[2021-07-08 13:49] LABS: Ferritin 28 ng/mL (6-137); TSH w/ Reflex to FT4 1.01 uIU/mL (0.47-4.68)
== END ==
PROVIDERS: PCP Physician Assistant; Referring Provider Physician Assistant; Visit Provider Physician Assistant
DX: D50.9 Iron deficiency anemia, unspecified (principal)
CPT/HCPCS: 36415; 82728; 83540; 83550; 84443; 85025

== ENCOUNTER 2021-07-13 09:19 | Emergency (ER) | payer OTHER, MEDICAID, SELFPAY ==
[2021-07-13 10:30] VITALS: BP 132/71; PULSE 83; RESP 18; TEMP 37.1; O2SAT 99; BMI 35.4
--- NOTE | 2021-07-13 11:01 | ED.ANIMALBIT ---
HPI - Animal Bite General Chief Complaint: Animal Bite Stated Complaint: Attacked by dog, right thigh injury Time Seen by Provider: 07/13/21 11:01 Source: patient Mode of arrival: Ambulatory History of Present Illness HPI narrative: 41-year-old woman otherwise healthy was bit by her dog and the right upper thigh this morning. The dog is and the patient felt that it was and exaggerated response and not typical behavior for the dog. There 2 large puncture wounds on the mid thigh anteriorly and a 2 cm shallow laceration on the upper thigh. Quite a bit of bruising around all of the wounds despite being only 2-3 hours old. She describes a significant amount of blood loss initially with all bleeding controlled at this time. Related Data Previous Rx's Medication Instructions Recorded ibuprofen 600 mg tablet 600 mg PO TID-QID PRN #20 tab 11/22/17 citalopram 20 mg tablet 20 mg PO DAILY #30 tab 07/30/20 amoxicillin 875 mg-potassium 1 tab PO BID #20 tab 07/13/21 clavulanate 125 mg tablet (Augmentin) Allergies Allergy/AdvReac Type Severity Reaction Status Date / Time acetaminophen [From Vicodin] Allergy Intermediate Hives Verified 05/05/21 22:33 hydrocodone [From Vicodin] Allergy Intermediate Hives Verified 05/05/21 22:33 shellfish derived Allergy ITCHING, Verified 05/05/21 22:33 vomiting Review of Systems Review of Systems Narrative: Pertinent positive and negative findings as per HPI Remainder of review of systems is otherwise unremarkable for Constitutional: Fevers, chills, weakness ENT: No sore throat, neck pain, ear pain CV: Chest pain, palpitations, Respiratory: Cough, wheeze, dyspnea GI: Nausea, vomiting, diarrhea, : Dysuria, hematuria, Patient History Medical History (Updated 07/13/21 @ 11:12 by Maya Argueta MD) Iron deficiency anemia Surgical History History of sleeve gastrectomy Social History Smoking Status: Never smoker substance use type: does not use Smoking Status: Never smoker alcohol intake frequency: 0-2 drinks per day Substance Use Type: does not use Exam Narrative Exam Narrative: General: Alert appropriate in no acute distress Respiratory: Able to speak in full sentences, no obvious respiratory distress Skin: No obvious rashes, warm and dry Neurologic: Grossly intact no obvious asymmetries or abnormalities Psych: appropriate insight and affect, cooperative Extremity: An approximate 8 x 10 large bruise with 2 puncture wounds the midthigh right side anteriorly. A 2 x 4 cm bruise with a very superficial laceration on the upper thigh. No other injury. Bleeding is controlled. Initial Vital Signs Initial Vital Signs: Vital Signs Temperature 98.8 F 07/13/21 10:30 Pulse Rate 83 07/13/21 10:30 Respiratory Rate 18 07/13/21 10:30 Blood Pressure 132/71 07/13/21 10:30 Pulse Oximetry 99 07/13/21 10:30 Course Orders Ordered: Discontinued Medications Acetaminophen (Acetaminophen 325 Mg Tablet) 325 mg PO NOW ONE Stop: 07/13/21 11:08 Last Admin: 07/13/21 11:11 Dose: 325 mg Documented by: Amoxicillin/Clavulanate Potassium (Amoxicillin/Clav 875/125 Mg) 1 tab PO NOW ONE Stop: 07/13/21 11:07 Last Admin: 07/13/21 11:11 Dose: 1 tab Documented by: Bacitracin (Bacitracin Oint 0.9 Gm Pckt) 5 applic TOP NOW ONE Stop: 07/13/21 11:07 Last Admin: 07/13/21 11:10 Dose: 5 applic Documented by: Ibuprofen (Ibuprofen 400 Mg Tablet) 400 mg PO NOW ONE Stop: 07/13/21 11:08 Last Admin: 07/13/21 11:11 Dose: 400 mg Documented by: Vital Signs Vital signs: Vital Signs - 8 hr 07/13/21 10:30 Temperature 98.8 F Pulse Rate 83 Respiratory Rate 18 Blood Pressure 132/71 Pulse Oximetry 99 MDM - Animal Bite MDM Narrative Medical decision making narrative: 41-year-old woman who was accidentally bit by her dog today. Will use Steri-Strips to help close the upper 1 but still allow drainage. All the wounds were cleaned, antibiotic ointment applied, large Beto wrap for mild compression so there isn't continued subdermal bleeding and bruising. Will place her on Augmentin for 10 days to avoid infection. She declines any pain medication and states she has both ibuprofen and Tylenol at home. 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 Is safe for home discharge Discharge Plan Departure Patient Disposition: Home Clinical Impression: Dog bite Instructions: DI for Dog Bite Activity Restrictions/Additional Instructions: Thank you for coming in I am so sorry that your going to have quite a bit of pain from the bruising from these dog bites. Using 400 mg of ibuprofen (2 [id number] pills) and 1 Tylenol every 6 hours can be very helpful in controlling pain. We due to additionally put people on antibiotics with and will bites to prevent infection. I have sent a prescription for Augmentin to [facility] for you to scrap picker later today. Please keep the wounds clean, use antibiotic ointment and a simple dressing. Using the Beto wrap for compression will likely help with both pain, swelling and prevent further bruising. If you notice the wounds getting worse or draining you do need to return to the emergency department Good luck with the addition of the new baby to your family! Prescriptions: New amoxicillin-pot clavulanate [Augmentin] 875-125 mg tablet 1 tab PO BID Qty: 20 0RF No Action citalopram 20 mg tablet 20 mg PO DAILY Qty: 30 2RF ibuprofen 600 mg tablet 600 mg PO TID-QID PRN (Reason: pain) Qty: 20 0RF Referrals: Emy Law PA-C [Primary Care Provider] -
[2021-07-13] MEDS: BACITRACIN OINT 0.9 GM PCKT 5 APPLIC TOP (11:10)
[2021-07-13] MEDS: IBUPROFEN 400 MG TABLET PO (11:11)
[2021-07-13] MEDS: ACETAMINOPHEN 325 MG TABLET PO (11:11)
[2021-07-13] MEDS: AMOXICILLIN/CLAV 875/125 MG 1 TAB PO (11:11)
== END 2021-07-13 11:32 | disposition home or self-care (01) ==
PROVIDERS: Emergency Provider Emergency Medicine; PCP Physician Assistant
DX: S71.131A Puncture wound without foreign body, right thigh, initial encounter (principal); W54.0XXA Bitten by dog, initial encounter
CPT/HCPCS: 36415; 99283; 99284

== ENCOUNTER → 2021-07-19 14:48 | Outpatient (CLI) | payer OTHER, MEDICAID, SELFPAY ==
--- NOTE | 2021-07-19 14:51 | DI.MG.S_ITS ---
BILATERAL DIGITAL SCREENING MAMMOGRAM 3D/2D WITH CAD: 07/19/2021 CLINICAL: Routine screening. Baseline exam. No prior exams were available for comparison. The tissue of both breasts is heterogeneously dense. This may lower the sensitivity of mammography. Current study was also evaluated with a Computer Aided Detection (CAD) system. No significant masses, calcifications, or other findings are seen in either breast. IMPRESSION: NEGATIVE There is no mammographic evidence of malignancy. A 1 year screening mammogram is recommended. This exam was interpreted at Station ID: [id number]. NOTE: For mammograms, a report in lay terms will be sent to the patient. Approximately 15% of breast malignancies will not be visualized mammographically. In the management of a palpable breast mass, a negative mammogram must not discourage biopsy of a clinically suspicious lesion. Electronically Signed By: Ramesh almazan/sam:07/21/2021 08:07:41 letter sent: Normal Exam ACR BI-RADS Category 1: Negative [id number]
== END ==
PROVIDERS: PCP Physician Assistant; Referring Provider Physician Assistant; Visit Provider Physician Assistant
DX: Z12.31 Encounter for screening mammogram for malignant neoplasm of breast (principal)
CPT/HCPCS: 77063; 77067

== ENCOUNTER 2023-05-02 15:57 | Emergency (ER) | payer OTHER, MEDICAID, SELFPAY ==
[2023-05-02 15:59] VITALS: BP 139/64; PULSE 88; RESP 20; TEMP 37.2; O2SAT 100; BMI 37.4
[2023-05-02] MEDS: FLUORESCEIN 1 MG STRIP EYE-RIGHT (16:30)
[2023-05-02] MEDS: PROPARACAINE 0.5% OPHTH SOL 1 DROPS EYE-RIGHT (16:30)
--- NOTE | 2023-05-02 16:54 | ED.EYEPROB ---
HPI - Eye Problem <SETH Mccormick - Last Filed: 05/02/23 17:00> General Chief complaint: Eye Problems Stated complaint: rt eye injury Time Seen by Provider: 05/02/23 16:25 Source: patient Mode of arrival: Ambulatory History of Present Illness HPI Narrative: 43-year-old female, never smoker, presents to the emergency department with complaints of right eyeball pain since this morning. Patient was pruning some exotic plants at her home and believes 1 of the leaves brushed her eye. Patient has reported some increasing pain and tearing but is able to keep her eye open by squinting. Patient did try to put some eyedrops in at home, but did not notice any improvement. Related Data Previous Rx's Medication Instructions Recorded ibuprofen 600 mg tablet 600 mg PO TID-QID PRN pain #20 tabs 11/22/17 citalopram 20 mg tablet 20 mg PO DAILY #30 tabs 07/30/20 amoxicillin 875 mg-potassium 1 tab PO BID #20 tabs 07/13/21 clavulanate 125 mg tablet (Augmentin) Allergies Allergy/AdvReac Type Severity Reaction Status Date / Time acetaminophen [From Vicodin] Allergy Intermediate Hives Verified 05/02/23 16:06 hydrocodone [From Vicodin] Allergy Intermediate Hives Verified 05/02/23 16:06 shellfish derived Allergy ITCHING, Verified 05/02/23 16:06 vomiting Review of Systems <SETH Mccormick - Last Filed: 05/02/23 17:00> Review of Systems Narrative: Narrative: See HPI. GENERAL: Denies chills, fatigue, fever, sweats. HEENT: Denies sinus pain, ear pain, sore throat, difficulty swallowing, blurry vision, dizziness. Endorses right eyeball discomfort. RESPIRATORY: Denies dyspnea, cough, wheezing, sputum. CARDIOVASCULAR: Denies chest pain, palpitations, edema. GASTROINTESTINAL: Denies nausea, vomiting, abdominal pain, diarrhea, constipation. MSK: Denies weakness, joint pain, or bony pain. SKIN: Denies rash, skin lesions, or pruritis. NEUROLOGIC: Denies weakness, dizziness, headache, numbness, confusion. Patient History <SETH Mccormick - Last Filed: 05/02/23 17:00> Medical History Iron deficiency anemia Surgical History History of sleeve gastrectomy Social History Smoking Status: Never smoker substance use type: does not use Smoking Status: Never smoker alcohol intake frequency: 0-2 drinks per day Substance Use Type: does not use Exam <SETH Mccormick - Last Filed: 05/02/23 17:00> Narrative Exam Narrative: Exam Narrative: GENERAL: This is a well-nourished, well-developed patient, in no acute distress HEAD: Atraumatic. Normocephalic. ENT: Nose without bleeding, purulent drainage. Airway patent. EYE: Right eye with no sign scleral injection, icterus or drainage, clear tearing only. RESPIRATORY: Respiratory rate and effort are normal. MSK: Moves all extremities. Normal range of motion, no clubbing or edema. Neurovascularly intact. NEURO: A&O x 3. SKIN: Warm, dry, no rashes or lesions noted. Initial Vital Signs Initial Vital Signs: Vital Signs Temperature 98.9 F 05/02/23 15:59 Pulse Rate 88 05/02/23 15:59 Respiratory Rate 20 05/02/23 15:59 Blood Pressure 139/64 05/02/23 15:59 Pulse Oximetry 100 05/02/23 15:59 Oxygen Delivery Method Room Air 05/02/23 15:59 Reviewed <Altagracia Pope DO - Last Filed: 05/02/23 18:00> Initial Vital Signs Initial Vital Signs: Vital Signs Temperature 98.9 F 05/02/23 15:59 Pulse Rate 88 05/02/23 15:59 Respiratory Rate 20 05/02/23 15:59 Blood Pressure 139/64 05/02/23 15:59 Pulse Oximetry 100 05/02/23 15:59 Oxygen Delivery Method Room Air 05/02/23 15:59 Course <SETH Mccormick - Last Filed: 05/02/23 17:00> Orders Ordered: Discontinued Medications Fluorescein Sodium (Fluorescein 1 Mg Strip) 1 mg EYE-RIGHT NOW ONE Stop: 05/02/23 16:28 Last Admin: 05/02/23 16:30 Dose: 1 mg Documented By: RB Proparacaine HCl (Proparacaine 0.5% Ophth Fe) 1 drops EYE-RIGHT NOW ONE Stop: 05/02/23 16:28 Last Admin: 05/02/23 16:30 Dose: 1 drops Documented By: RB Vital Signs Vital signs: Vital Signs - 8 hr 05/02/23 15:59 Temperature 98.9 F Pulse Rate 88 Respiratory Rate 20 Blood Pressure 139/64 Pulse Oximetry 100 Oxygen Delivery Method Room Air <Altagracia Pope DO - Last Filed: 05/02/23 18:00> Orders Ordered: Discontinued Medications Fluorescein Sodium (Fluorescein 1 Mg Strip) 1 mg EYE-RIGHT NOW ONE Stop: 05/02/23 16:28 Last Admin: 05/02/23 16:30 Dose: 1 mg Documented By: RB Proparacaine HCl (Proparacaine 0.5% Ophth Fe) 1 drops EYE-RIGHT NOW ONE Stop: 05/02/23 16:28 Last Admin: 05/02/23 16:30 Dose: 1 drops Documented By: RB Vital Signs Vital signs: Vital Signs - 8 hr 05/02/23 15:59 Temperature 98.9 F Pulse Rate 88 Respiratory Rate 20 Blood Pressure 139/64 Pulse Oximetry 100 Oxygen Delivery Method Room Air MDM - Eye Problem <SETH Mccormick - Last Filed: 05/02/23 17:00> Differential Diagnosis Differential diagnosis: Likely corneal abrasion, conjunctivitis and other (Foreign body in right eye) MDM Narrative Medical decision making narrative: 43-year-old female with suspected foreign body in right eye. Right eye was anesthetized with proparacaine and investigated with magnifying lens and Q-tip where a tiny clear circular foreign body was removed from the superior part of the eye. Through the use of fluorescein stain and black light, it was determined that no corneal abrasion exists. Flush the eye with normal saline, with patient tolerating procedure well. I believe patient has improved enough to be discharged home. Discussed plan of care and return precautions with patient, who verbalized understanding and was agreeable with course of action. Discharge Plan Departure Patient Disposition: Home Clinical Impression: Foreign body of eye, external, right Qualifiers: Encounter type: initial encounter Qualified Code(s): T15.91XA - Foreign body on external eye, part unspecified, right eye, initial encounter Instructions: DI for Eye Allergic Reaction, DI for Eye Pain Activity Restrictions/Additional Instructions: *You have been diagnosed with a suspected foreign body in right eye. We were able to flush and investigate the eye and believe we may have removed a small clear particle from your eye. No signs of corneal abrasion exist nor any signs of conjunctivitis. You may irrigate the eye at home as needed, in addition to a antihistamine medications such as Benadryl. For any worsening symptoms, that include intolerable pain, blurry vision, etc., please return to the emergency department or follow-up with your family doctor or an eye doctor. *What to do: *Please continue to take your regular medications as directed. [ ] New medication prescriptions sent to your pharmacy: [ ] [ ] New medication written as a paper prescription [x ] No new medications given *Please follow up with your primary care provider in 2-3 days, call for an appointment. Let them know you were seen in the Emergency Department and that we ask that you be seen in follow up. We will electronically transmit a record of today's note if your PCP is in our system *If you do not have a primary care provider please contact the [facility] Resource line at [phone]. They will ask some questions about your medical history and help get you set up with a doctor in the community. ? Return to ER if you should have any new, worsening or concerning symptoms, such as worsening pain, severe headache, confusion, chest pain, difficulty breathing, fever greater than 101 F, shaking chills, persistent vomiting to the point that you cannot drink fluids, or other new or worsening symptoms. Prescriptions: No Action citalopram 20 mg tablet 20 mg PO DAILY Qty: 30 2RF ibuprofen 600 mg tablet 600 mg PO TID-QID PRN (Reason: pain) Qty: 20 0RF amoxicillin-pot clavulanate [Augmentin] 875-125 mg tablet 1 tab PO BID Qty: 20 0RF Referrals: Emy Law PA-C [Primary Care Provider] - Stand Alone Forms: Patient Portal/API ED Sign-out <Altagracia Pope DO - Last Filed: 05/02/23 18:00> Cosign ED Attending Camilo Attestation: I was immediately available in the department for consultation. Documentation has been reviewed.
== END 2023-05-02 16:55 | disposition home or self-care (01) ==
PROVIDERS: Emergency Provider Registered Nurse; PCP Physician Assistant
DX: T15.91XA Foreign body on external eye, part unspecified, right eye, initial encounter (principal); X58.XXXA Exposure to other specified factors, initial encounter
CPT/HCPCS: 99282

== ENCOUNTER 2023-06-21 19:16 | Emergency (ER) | payer OTHER, MEDICAID, SELFPAY ==
[2023-06-21 19:20] VITALS: BP 126/73; PULSE 92; RESP 18; TEMP 36.1; O2SAT 99; BMI 38.0
[2023-06-21 22:24] VITALS: BP 131/69; PULSE 75; RESP 15; O2SAT 99
--- NOTE | 2023-06-21 22:40 | ED_ITS ---
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 She also has 2 small children with similar twisting turning and lifting. Does not describe any significant episode of injury, no trauma no other red flags for low back pain. She notes that she sat down on the couch yesterday and when she went to stand up she had significant mid low back muscle spasm and pain that has progressed to the point she is having difficulty moving at all. She has been using ibuprofen and Tylenol which is no longer effective and she comes in further evaluation. She describes no abdominal pain, she is currently menstruating, there is no specific flank pain. She is never had similar symptoms in her low back but has had problems with her neck previously Related Data Previous Rx's Medication Instructions Recorded ibuprofen 600 mg tablet 600 mg PO TID-QID PRN pain #20 tabs 11/22/17 citalopram 20 mg tablet 20 mg PO DAILY #30 tabs 07/30/20 amoxicillin 875 mg-potassium 1 tab PO BID #20 tabs 07/13/21 clavulanate 125 mg tablet (Augmentin) oxycodone-acetaminophen 5 mg-325 1 tab PO Q6H PRN pain #14 tabs 06/21/23 mg tablet Allergies Allergy/AdvReac Type Severity Reaction Status Date / Time hydrocodone [From Vicodin] Allergy Intermediate Hives Verified 06/21/23 19:20 shellfish derived Allergy ITCHING, Verified 06/21/23 19:20 vomiting Review of Systems Review of Systems Narrative: Pertinent positive and negative findings as per HPI Patient History Medical History (Updated 06/21/23 @ 22:59 by Maya Argueta MD) Iron deficiency anemia Surgical History History of sleeve gastrectomy Social History Smoking Status: Never smoker substance use type: does not use Smoking Status: Never smoker alcohol intake frequency: 0-2 drinks per day Substance Use Type: does not use Exam Initial Vital Signs Initial Vital Signs: Vital Signs Temperature 97.0 F L 06/21/23 19:20 Pulse Rate 92 H 06/21/23 19:20 Respiratory Rate 18 06/21/23 19:20 Blood Pressure 126/73 06/21/23 19:20 Pulse Oximetry 99 06/21/23 19:20 Oxygen Delivery Method Room Air 06/21/23 19:20 General: Alert appropriate in no acute distress Respiratory: Able to speak in full sentences, no obvious respiratory distress Skin: No obvious rashes, warm and dry Neurologic: Grossly intact no obvious asymmetries or abnormalities, no radicular pain and no lower extremity paresthesias Psych: appropriate insight and affect, cooperative Back: She does not have any point tenderness along the lower thoracic or lumbar area. No tenderness with pelvic ring manipulation. She is some minor bilateral muscle spasm around the lumbar spine. Obvious pain and spasm with movement. Course Vital Signs Vital signs: Vital Signs - 8 hr 06/21/23 19:20 06/21/23 22:24 Temperature 97.0 F L Pulse Rate 92 H 75 Respiratory Rate 18 15 Blood Pressure 126/73 131/69 Pulse Oximetry 99 99 Oxygen Delivery Method Room Air Room Air MDM - Back Pain/Injury MDM Narrative Medical decision making narrative: CC: Acute low back pain Data collected from: patient Differential considered: Low back pain, compression fracture, kidney stones, diverticulitis, pelvic abnormalities Exam documented above, pertinent findings include: No significant abdominal pain minor paraspinous spasm to palpation. No midline point tenderness to suspect epidural abscess or new bony injury. Treatments: IM Toradol, Percocet prepack to take a dose once she gets home as she is driving Discussion: 43-year-old woman with acute low back spasm. She does not have any red flags that suggest additional lumbar spine imaging needs to be done at this time. She is had no recent trauma. There is no indication of abdominal abnormalities, pelvic complications or kidney stones. We talked anticipated recovery of chronic low back pain. Appropriate use of ibuprofen and Tylenol, appropriate use of narcotics. At this point questions are answered and she is safe for discharge Discharge Plan Departure Patient Disposition: Home Clinical Impression: Acute low back pain Qualifiers: Back pain laterality: bilateral Sciatica presence: without sciatica Qualified Code(s): M54.50 - Low back pain, unspecified Instructions: DI for Low Back Pain Activity Restrictions/Additional Instructions: Thank you for coming in today, I am sorry that you are suffering with this back pain and spasm. I am not seeing any concerning signs that this is infection, a compression fracture, a kidney stone or anything that would suggest that blood work or additional imaging studies are required today In the emergency department you are given a shot of Toradol to help with the acute pain. This is very similar to ibuprofen. I have given you a couple of tablets of Percocet to take when you get home. Percocet has Tylenol plus oxycodone. Please try 1 when you get home. If you do develop hives like you did with hydrocodone please take some Benadryl and do not use more of the ox ycodone. Using 400 mg of ibuprofen (2 [id number] pills) and 1 Tylenol every 6 hours can be very helpful in controlling pain. For severe pain you can use to ibuprofen and 1 Percocet. In the days that you do to use to use Percocet I would recommend using a stool softener as it will typically cause constipation. Please do not drive or operate heavy machinery while taking narcotics Prescription was electronically transmitted to [facility] in [place] this evening Ice is typically more helpful than heat but I would try both and see which seems best for you. If you find that you are getting worse or develop any new symptoms, please feel free to return to the emergency department for further evaluation. Prescriptions: New oxycodone-acetaminophen 5-325 mg tablet 1 tab PO Q6H PRN (Reason: pain) Qty: 14 0RF No Action citalopram 20 mg tablet 20 mg PO DAILY Qty: 30 2RF ibuprofen 600 mg tablet 600 mg PO TID-QID PRN (Reason: pain) Qty: 20 0RF amoxicillin-pot clavulanate [Augmentin] 875-125 mg tablet 1 tab PO BID Qty: 20 0RF Referrals: Emy Law PA-C [Primary Care Provider] - Stand Alone Forms: Patient Portal/API, Work Release Note
[2023-06-21] MEDS: KETOROLAC 30 MG/ML VIAL IM (23:07)
[2023-06-21] MEDS: OXYCODONE/APAP 5/325 PREPACK 1 BOTTLE MISC (23:09)
[2023-06-21 23:17] VITALS: PULSE 72; RESP 18; O2SAT 99
== END 2023-06-21 23:22 | disposition home or self-care (01) ==
PROVIDERS: Emergency Provider Emergency Medicine; PCP Physician Assistant
DX: M54.50 Low back pain, unspecified (principal); M62.830 Muscle spasm of back
CPT/HCPCS: 96372; 99283; J1885

== ENCOUNTER 2024-10-17 17:12 | Emergency (ER) | payer OTHER, SELFPAY ==
[2024-10-17 17:42] VITALS: BP 125/58; PULSE 79; RESP 16; TEMP 36.5; O2SAT 100; BMI 39.5
[2024-10-17] MEDS: KETOROLAC 30 MG/ML VIAL IM (18:09)
--- NOTE | 2024-10-17 18:09 | ED_ITS ---
<Statement entered by Bart Kennedy, - 10/17/24 18:43> Dr. Kennedy cosign statement I was available for consultation during this patient's emergency department visit. This chart is signed my by myself for administrative purposes only. I do not have direct contact with this patient during this visit. They were seen independently by the [facility]. 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 Patient states that she was bitten by a cat on her left middle fingertip along the cuticle. Patient endorses that it was a very shallow bite. Endorses pain at the site of the bite. Patient also states that she was trying to avoid a dog bite, jerked quickly away, in the process pulled a neck muscle. Patient states that she has neck pain that is especially painful when she is moving her right arm. No numbness, tingling, weakness. Tetanus is up-to-date. Related Data Home Medications Medication Instructions Recorded Confirmed fluoxetine 20 mg capsule 20 mg PO ONCE PM 10/17/24 10/17/24 Previous Rx's Medication Instructions Recorded amoxicillin 875 mg-potassium 1 tab PO Q12H 7 days #14 tabs 10/17/24 clavulanate 125 mg tablet cyclobenzaprine 10 mg tablet 10 mg PO TID PRN muscle spasm 3 10/17/24 days #10 tabs Allergies Allergy/AdvReac Type Severity Reaction Status Date / Time hydrocodone [From Vicodin] Allergy Intermediate Hives Verified 06/21/23 19:20 shellfish derived Allergy ITCHING, Verified 06/21/23 19:20 vomiting Review of Systems Constitutional Constitutional: Denies chills, Denies fatigue, Denies fever(s), Denies frequent falls, Denies lethargy and Denies weakness Eyes Eyes: Denies change in vision, Denies eye discharge, Denies irritation and Denies loss of vision ENT Ears, Nose, Mouth, and Throat: Denies change in voice, Denies dizziness, Reports neck pain, Denies sore throat and Denies throat swelling Cardiovascular Cardiovascular: Denies chest pain, Denies irregular heart rhythm, Denies lightheadedness, Denies palpitations, Denies dyspnea, Denies dyspnea on exertion and Denies orthopnea Respiratory Respiratory: Denies cough, Denies dyspnea, Denies dyspnea on exertion and Denies wheezing Gastrointestinal Gastrointestinal: Denies abdominal pain, Denies change in bowel habits, Denies diarrhea, Denies nausea and Denies vomiting Musculoskeletal Musculoskeletal: Reports neck pain and Denies numbness Integumentary/Breasts Skin/Breast: Denies pruritus, Denies erythema, Denies rash and Reports wounds Comments: cat bite to left middle finger tip Neurologic Neurologic: Denies behavioral changes, Denies confusion, Denies dizziness, Denies frequent falls, Denies loss of vision, Denies numbness and Denies weakness Psychiatric Psychiatric: Denies anxiety, Denies behavioral changes, Denies confusion, Denies depression, Denies homicidal ideation and Denies suicidal ideation Endocrine Endocrine: Denies fatigue, Denies flushing and Denies palpitations Hematologic/Lymphatic Hematologic/Lymphatic: Denies easy bruising Allergic/Immunologic Allergic/Immunologic: Denies urticaria, Denies throat swelling and Denies wheezing Patient History Medical History Iron deficiency anemia Surgical History History of sleeve gastrectomy Social History Smoking Status: Never smoker substance use type: does not use Smoking Status: Never smoker alcohol intake frequency: 0-2 drinks per day Exam Narrative Exam Narrative: Const General:?cooperative, healthy appearing and comfortable [facility] Head:?normal to inspection Ears:?hearing grossly normal bilaterally Nose:?external nose normal Face and sinus:?normal facial exam and sinuses nontender Mouth:?oral mucosae normal Throat:?posterior oropharynx normal Eyes General:?appearance normal, both eyes and all related structures Neck Neck:?normal visual inspection and no lymphadenopathy noted Resp Effort & Inspection:?normal respiratory effort Auscultation:?clear to auscultation bilaterally Cardio Rate:?regular rate Rhythm:?regular rhythm Integumentary There is a cat bite noted to the tip of the left middle finger along the cuticle. No foreign body. Neurovascularly intact. Wound not actively bleeding. Musculoskeletal No midline tenderness to palpation. No paraspinal tenderness to palpation. Strength and sensation is intact. Full range of motion. Neurovascularly intact. Neuro General:?patient alert, patient awake and patient oriented x3 Initial Vital Signs Initial Vital Signs: Vital Signs Temperature 97.7 F 10/17/24 17:42 Pulse Rate 79 10/17/24 17:42 Respiratory Rate 16 10/17/24 17:42 Blood Pressure 125/58 L 10/17/24 17:42 Pulse Oximetry 100 10/17/24 17:42 Oxygen Delivery Method Room Air 10/17/24 17:42 Course Orders Ordered: Discontinued Medications Ketorolac Tromethamine (Ketorolac 30 Mg/Ml Vial) 30 mg IM NOW ONE Stop: 10/17/24 17:59 Last Admin: 10/17/24 18:09 Dose: 30 mg Documented By: RODY Vital Signs Vital signs: Vital Signs - 8 hr 10/17/24 17:42 Temperature 97.7 F Pulse Rate 79 Respiratory Rate 16 Blood Pressure 125/58 L Pulse Oximetry 100 Oxygen Delivery Method Room Air MDM - Animal Bite MDM Narrative Medical decision making narrative: 44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 There is a shallow bite along the cuticle of the left middle finger. Not actively bleeding. No indication for imaging at this time. No concern for foreign body. Will prescribe antibiotics. Patient's neck pain is consistent with a neck strain/whiplash injury. Patient was given some Toradol in the ED. Will also prescribe Flexeril. Patient was counseled on signs of infection. ED return precautions discussed with patient. Patient verbalized understanding. Medical records reviewed: Yes Discharge Plan Departure Patient Disposition: Home Clinical Impression: Cat bite Qualifiers: Encounter type: initial encounter Qualified Code(s): W55.01XA - Bitten by cat, initial encounter Neck strain Qualifiers: Encounter type: initial encounter Qualified Code(s): S16.1XXA - Strain of muscle, fascia and tendon at neck level, initial encounter Instructions: Whiplash, DI for Cat Bite Activity Restrictions/Additional Instructions: You were evaluated in the ED today for a cat bite and neck strain. You are being prescribed antibiotics for the cat bite since they are extremely prone to infection. You were given an injection of Toradol in the ED today for the neck pain. You were also being prescribed a muscle relaxant which you may take at home. You may continue to take ibuprofen as well. Please watch for signs of infection including worsening redness, pain, swelling, warmth, discharge. Return to the ED if you note any signs of infection. Prescriptions: New amoxicillin-pot clavulanate 875-125 mg tablet 1 tab PO Q12H 7 Days Qty: 14 0RF cyclobenzaprine 10 mg tablet 10 mg PO TID PRN (Reason: muscle spasm) 3 Days Qty: 10 0RF No Action fluoxetine 20 mg capsule 20 mg PO ONCE PM Referrals: Miscellaneous,Doctor, MD [Primary Care Provider] - Stand Alone Forms: Patient Portal/API/Survey, Work Release Note
[2024-10-17 18:25] VITALS: BP 123/58; PULSE 77; RESP 16; O2SAT 100
== END 2024-10-17 18:27 | disposition home or self-care (01) ==
PROVIDERS: Emergency Provider Student in an Organized Health Care Education/Training Program
DX: S16.1XXA Strain of muscle, fascia and tendon at neck level, initial encounter (principal); S61.253A Open bite of left middle finger without damage to nail, initial encounter; W55.01XA Bitten by cat, initial encounter; X58.XXXA Exposure to other specified factors, initial encounter; Y99.0 Civilian activity done for income or pay
CPT/HCPCS: 96372; 99283; J1885